=== PATIENT | male | born 1940 | race African-American/Black ===

== ENCOUNTER 2017-09-15 10:56 | Emergency (ER) | payer MEDICARE, MEDICAID ==
--- NOTE | 2017-09-15 15:54 | RAD ---
CHEST TWO VIEWS: 09/15/17 Comparison is made with the prior exam dated 11/20/14. The heart is normal in size. An AICD remains in place. There are on congestive changes or pleural eff usions. The left hemidiaphragm is chronically elevated. Other than some scarring or atelectasis in the left b ase, there were no findings strongly suggestive of an acute infiltrate. Noted in this patient is supe rior subluxation of each humeral head with narrowing of the acromiohumeral space suggesting chronic r otator cuff thinning. IMPRESSION: Chronic findings but no definite acute changes. POS: [facility]
== END 2017-09-15 11:45 | disposition home or self-care (01) ==
LOC: BURERS 10:56
DX: R05 Cough (principal); N40.0 Benign prostatic hyperplasia without lower urinary tract symptoms; I25.2 Old myocardial infarction; I10 Essential (primary) hypertension; F17.210 Nicotine dependence, cigarettes, uncomplicated; Z79.82 Long term (current) use of aspirin; Z79.899 Other long term (current) drug therapy
CPT/HCPCS: 71046

== ENCOUNTER 2017-10-01 18:10 | Emergency (ER) | payer MEDICARE, MEDICAID ==
--- NOTE | 2017-10-01 21:20 | RAD ---
PORTABLE CHEST: Date: 10-01-17 Comparison: 09-15-17 FINDINGS: In the interval a linear infiltrate has developed in the lingular region of the left lung. The shape and nature of the infiltrate makes atelectasis more likely than pneumonia, though the ladder is not c ompletely excluded. Slight volume loss on the left seems no different than below the right lung is cl ear. An AICD is seen as usual. The heart size is normal and there are no congestive changes. IMPRESSION: Interval development of a left midlung infiltrate, somewhat more likely to be atelectasis than not. F ollow up required. POS: HOME
== END 2017-10-01 19:18 | disposition home or self-care (01) ==
LOC: BURERS 18:10
DX: J18.9 Pneumonia, unspecified organism (principal); J20.9 Acute bronchitis, unspecified; N40.0 Benign prostatic hyperplasia without lower urinary tract symptoms; I25.2 Old myocardial infarction; I10 Essential (primary) hypertension; F17.210 Nicotine dependence, cigarettes, uncomplicated; Z79.899 Other long term (current) drug therapy; Z79.82 Long term (current) use of aspirin
CPT/HCPCS: 71045; 94640; J7620

== ENCOUNTER 2019-07-25 11:17 | Emergency (ER) | payer MEDICARE, MEDICAID ==
[2019-07-25] MEDS ORDERED: AMOXicillin 250 MG CAP ONE (11:49)
[2019-07-25] MEDS ORDERED: predniSONE 20 MG TAB ONE (11:49)
== END 2019-07-25 12:03 | disposition home or self-care (01) ==
LOC: BURERS 11:17
DX: J44.0 Chronic obstructive pulmonary disease with (acute) lower respiratory infection (principal); J20.9 Acute bronchitis, unspecified; J44.1 Chronic obstructive pulmonary disease with (acute) exacerbation; N40.0 Benign prostatic hyperplasia without lower urinary tract symptoms; I25.2 Old myocardial infarction; I10 Essential (primary) hypertension; F17.210 Nicotine dependence, cigarettes, uncomplicated
CPT/HCPCS: 94640; J7512; J7620

== ENCOUNTER 2021-07-25 13:23 | Emergency (ER) | payer MEDICARE, MEDICAID ==
[2021-07-25] MEDS ORDERED: Ondansetron ODT 4 MG TAB ONE (13:48)
== END 2021-07-25 15:00 | disposition home or self-care (01) ==
LOC: BURERS 13:23
DX: R11.2 Nausea with vomiting, unspecified (principal); N40.0 Benign prostatic hyperplasia without lower urinary tract symptoms; I25.2 Old myocardial infarction; I10 Essential (primary) hypertension; F17.210 Nicotine dependence, cigarettes, uncomplicated
CPT/HCPCS: 99283; Q0162

== ENCOUNTER 2024-02-08 20:34 | Emergency (ER) | payer MEDICARE, OTHER ==
[2024-02-08] MEDS ORDERED: Cefepime 2 GM VIAL ONE (21:07)
[2024-02-08] MEDS ORDERED: Sodium Chloride 0.9% 100 ML ONE (21:08)
[2024-02-08 21:33] LABS: INR-International Normal Ratio 1.3; Prothrombin Time 16.6 sec (12.0-14.7)
[2024-02-08] MEDS ORDERED: Ondansetron PF 4 MG/2 ML Vial ONE (21:33)
[2024-02-08 21:34] LABS: #Basophils 0.1 thou/uL (0.0-0.2); #Lymphocytes 0.7 thou/uL (1.20-3.40); #Monocytes 1.1 thou/uL (0.11-0.59); #Neutrophils 10.4 thou/uL (1.40-6.50); %Basophils 0.6 % (0.0-1.0); %Eosinophils 0.2 % (0.0-10.0); %Monocytes 8.7 % (0.0-10.0); %Neutrophils 84.5 % (42.0-75.0); Hematocrit 29.3 % (42.0-52.0); Hemoglobin 9.7 g/dL (14.0-18.0); Mean Corpuscular Hemoglobin 26.8 pg (27.0-31.0); Mean Corpuscular Volume 81.1 fl (78.0-98.0); Mean Platelet Volume 5.5 fL (7.4-10.4); PTT 46.9 sec (22.9-36.1); Platelet Count 232 10x3/uL (130-400); RBC Distribution Width 14.7 % (11.5-14.5); Red Blood Cell (RBC) Count 3.61 mill/uL (4.70-6.10); White Blood Cell (WBC) Count 12.4 10x3/uL (4.8-10.8)
[2024-02-08 21:40] LABS: ALT (SGPT) 19 U/L (8-55); AST (SGOT) 27 U/L (5-34); Albumin 2.2 g/dL (3.4-4.8); Alkaline Phosphatase 40 U/L (40-110); Anion Gap 14 mmol/L (10-20); BUN (Urea Nitrogen) 23 mg/dL (8.4-25.7); Bilirubin, Total 1.3 mg/dL (0.2-1.2); Calc. Creatinine Clearance 0 mL/min (70-130); Calcium 7.9 mg/dL (7.8-10.44); Carbon Dioxide 19 mmol/L (23-31); Chloride 103 mmol/L (98-107); Estimated GFR 81; Globulin 2.8 g/dL (2.4-3.5); Glucose 77 mg/dL (83-110); Magnesium 1.8 mg/dL (1.6-2.6); Potassium 3.6 mmol/L (3.5-5.1); Troponin I 0.044 ng/mL (< 0.028)
[2024-02-08 21:43] LABS: Base Excess-Venous -3.7 mmol/L (-2.0 to 3.0); Bicarbonate (HCO3v) 21.6 mmol/L (22.0-28.0); CO2 Tension (PvCO2) 39.4 mmHg (42.0-51.0); Calcium, Ionized 1.13 mmol/L (1.15-1.33); Chloride 102 mmol/L (98-107); Hemoglobin - Calc 10.4 g/dL (14.0-18.0); Potassium 3.5 mmol/L (3.5-5.1); Sodium 135 mmol/L (138-145); T. Carbon Dioxide 22.8 mmol/L (22.0-28.0); vO2 Saturation-calc 87.4 % (60.0-85.0)
[2024-02-08 21:49] LABS: Sodium 132 mmol/L (136-145)
[2024-02-08 22:04] LABS: Bilirubin Moderate (Negative); Blood, Urine Negative (Negative); Clarity Clear (Clear); Glucose, Urine (Dipstick) Negative (Negative); Ketone, Urine Trace mg/dL (Negative); Leukocyte Negative (Negative); Nitrite Negative (Negative); Protein, Urine (Dipstick) Negative (Neg-Trace); pH, Urine 5.5 (5.0-9.0)
[2024-02-08 22:11] LABS: Bacteria/HPF None Seen HPF (None Seen); CAUTI Indications for Culture Dysuria,urgency,freq; RBC/HPF None Seen HPF (0-3); Squamous Epithelial 0-3 HPF (0-3); WBC/HPF None Seen HPF (0-3)
[2024-02-08 22:12] LABS: Urine Culture Reflex No No
[2024-02-08] MEDS ORDERED: Vancomycin 1 GM VIAL ONE (22:42)
== END 2024-02-09 01:05 | disposition short-term general hospital (02) ==
LOC: BURERS 20:34
DX: J90 Pleural effusion, not elsewhere classified (principal); R65.20 Severe sepsis without septic shock; I28.9 Disease of pulmonary vessels, unspecified; F17.210 Nicotine dependence, cigarettes, uncomplicated; J98.09 Other diseases of bronchus, not elsewhere classified; R79.89 Other specified abnormal findings of blood chemistry; I10 Essential (primary) hypertension; I25.2 Old myocardial infarction; Z95.810 Presence of automatic (implantable) cardiac defibrillator; Z86.12 Personal history of poliomyelitis; Z79.899 Other long term (current) drug therapy
CPT/HCPCS: 36415; 51701; 70450; 71045; 71260; 74177; 80053; 81001; 82330; 82435; 82803; 83605; 83735; 83880; 84132; 84295; 84484; 85014; 85025; 85610; 85730; 87040; 87086; 87149; 93005; 94760; 96365; 96367; 96375; J0692; J2405; J3370; J3490